=== PATIENT | female | born 1955 | race African-American/Black ===

== ENCOUNTER 2016-06-04 09:31 | Emergency (ER) | payer OTHER ==
[~2016-06-04] VITALS: Ht 160 cm; Wt 80.0 kg
[~2016-06-04 09:31] MED LIST: APIX5TAB PO; GABA100C4 PO; LEVEMIR SQ; METF500 PO
[2016-06-04 09:49] VITALS: BP 183/89; PULSE 83; RESP 18; TEMP 98.6; O2SAT 98
[2016-06-04] MEDS ORDERED: SODIUM CHLORIDE 0.9% FLUSH 5 ML FLUSH IVF PRN (10:00)
[2016-06-04] MEDS ORDERED: oxyCODONE/ACETAMINOPHEN 5 MG/325 MG TAB PO ONE (10:00)
[2016-06-04] MEDS ORDERED: METF1000 PO (10:11)
[2016-06-04] MEDS ORDERED: LEVEMIR SQ (10:11)
--- NOTE | 2016-06-04 10:11 | PD ---
HPI Chief Complaint: Chest Pain Time Seen by Provider: 09:59 Travel History International Travel<30 days: No Contact w/Intl Traveler<30days: No Traveled to known affect area: No History of Present Illness HPI This patient complains of chest pain. Location is left upper chest. It's a sharp stabbing pain that been constant for the last 11 hours. Severity is moderate. It's worse with pressing on it or moving her left shoulder. No injury. Denies fever or productive cough. She denies cardiac or pulmonary disease. She is diabetic. No alleviating factors PFSH Past Medical History Hx Anticoagulant Therapy: Yes Autoimmune Disease: No Blood Disorders: No Cancer: No Cardiovascular Problems: No High Cholesterol: Yes Chemotherapy: No Chest Pain: Yes Cerebrovascular Accident: No Diabetes: Yes (TYPE 2 ) Diminished Hearing: No Diverticulitis: Yes Deep Vein Thrombosis: Yes (LT THIGH) Endocrine: No Gastrointestinal Disorders: No Genitourinary: Yes Hepatitis: Yes ("THEY THINK I MIGHT HAVE IT BECAUSE MY LIVER IS ENLARGED") Hypertension: Yes Kidney Stones: Yes Musculoskeletal: Yes (CHRONIC RIGHT KNEE PAIN, BACK PAIN, TORN LIGAMENT R KNEE , CHRONIC WRIST INJ) Neurologic: No Psychiatric: No Respiratory: No Immunizations Current: Yes ?: Not Menopausal: Yes : 3 Para: 3 Miscarriage: 0 : 0 Tubal Ligation: Yes Past Surgical History Abdominal Surgery: Yes Appendectomy: Yes Cholecystectomy: Yes Gynecologic Surgery: Yes (BLADDER SLING) Hysterectomy: Yes Other Surgery: Yes Social History Alcohol Use: No Tobacco Use: No Substance Use: No Allergies-Medications (Allergen,Severity, Reaction): Coded Allergies: Contrast Media (Verified Allergy, Severe, Cardiac Arrest, 06/04/16) REACTION INFORMATION CAME FROM REPORT OF ABD/PELVIS SCAN DONE ON 05/27/2004 Shellfish (Verified Allergy, Severe, "stopped breathing,swelling", 06/04/16 ) Aleve (Verified Allergy, Unknown, PT DENIES, 06/04/16) Ibuprofen (Unverified Allergy, Unknown, PT DENIES, 06/04/16) Darvocet-N 100 (Verified Adverse Reaction, Severe, STOMACH PAIN, 06/04/16) Toradol (Verified Adverse Reaction, Severe, ITCHING, 06/04/16) Ultram (Verified Adverse Reaction, Severe, ITCHING, 06/04/16) Reported Meds & Prescriptions Reported Meds & Active Scripts Active Reported Metformin (Metformin HCl) 1,000 Mg Tab 1,000 Mg PO BIDPC With meals Levemir Inj (Insulin Detemir) 1,000 unit/ 10 ML Vial 60 Units SQ HS Do not mix with any other Insulin. Review of Systems General / Constitutional: No: Fever Eyes: No: Visual changes HENT: No: Headaches Cardiovascular: Positive: Chest Pain or Discomfort Respiratory: No: Shortness of Breath Gastrointestinal: No: Abdominal Pain Genitourinary: No: Dysuria Musculoskeletal: Positive: Pain Skin: No Rash Neurologic: No: Weakness Psychiatric: No: Depression Endocrine: No: Polydipsia Hematologic/Lymphatic: No: Easy Bruising Physical Exam Narrative GENERAL: Well-nourished, well-developed patient with left upper chest pain SKIN: Warm and dry. HEAD: Atraumatic. Normocephalic. EYES: Pupils equal and round. No scleral icterus. No injection or drainage. ENT: No nasal bleeding or discharge. Mucous membranes pink and moist. NECK: Trachea midline. No JVD. CARDIOVASCULAR: Regular rate and rhythm. No murmur appreciated. RESPIRATORY: No accessory muscle use. Clear to auscultation. Breath sounds equal bilaterally. GASTROINTESTINAL: Abdomen soft, non-tender, nondistended. Hepatic and splenic margins not palpable. MUSCULOSKELETAL: No obvious deformities. No clubbing. No cyanosis. No edema. Chest wall examination reveals readily reproducible tenderness in the left pectoral region. Right side is nontender NEUROLOGICAL: Awake and alert. No obvious cranial nerve deficits. Motor grossly within normal limits. Normal speech. PSYCHIATRIC: Appropriate mood and affect; insight and judgment normal. Data Data Last Documented VS Vital Signs Date Time Temp Pulse Resp B/P Pulse Ox O2 Delivery O2 Flow Rate FiO2 06/04/16 10:22 78 18 165/71 96 Room Air 06/04/16 09:49 98.6 Orders Basic Metabolic Panel (Bmp) (06/04/16 10:00) Ckmb (Isoenzyme) Profile (06/04/16 10:00) Complete Blood Count With Diff (06/04/16 10:00) Troponin I (06/04/16 10:00) Chest, Single Ap (06/04/16 10:00) Ecg Monitoring (06/04/16 10:00) Iv Access Insert/Monitor (06/04/16 10:00) Oximetry (06/04/16 10:00) Sodium Chloride 0.9% Flush (Ns Flush) (06/04/16 10:00) Oxycodone-Acetamin 5-325 Mg (Percocet (06/04/16 10:00) CKMB (06/04/16 09:57) CKMB% (06/04/16 09:57) Labs Laboratory Tests Test 06/04/16 09:57 White Blood Count 8.8 TH/MM3 Red Blood Count 4.26 MIL/MM3 Hemoglobin 13.0 GM/DL Hematocrit 39.1 % Mean Corpuscular Volume 91.7 FL Mean Corpuscular Hemoglobin 30.5 PG Mean Corpuscular Hemoglobin 33.3 % Concent Red Cell Distribution Width 12.9 % Platelet Count 331 TH/MM3 Mean Platelet Volume 8.5 FL Neutrophils (%) (Auto) 59.7 % Lymphocytes (%) (Auto) 33.2 % Monocytes (%) (Auto) 5.1 % Eosinophils (%) (Auto) 0.6 % Basophils (%) (Auto) 1.4 % Neutrophils # (Auto) 5.2 TH/MM3 Lymphocytes # (Auto) 2.9 TH/MM3 Monocytes # (Auto) 0.5 TH/MM3 Eosinophils # (Auto) 0.1 TH/MM3 Basophils # (Auto) 0.1 TH/MM3 CBC Comment DIFF FINAL Differential Comment Sodium Level 140 MEQ/L Potassium Level 3.9 MEQ/L Chloride Level 103 MEQ/L Carbon Dioxide Level 27.5 MEQ/L Anion Gap 10 MEQ/L Blood Urea Nitrogen 12 MG/DL Creatinine 0.70 MG/DL Estimat Glomerular Filtration 102 ML/MIN Rate Random Glucose 224 MG/DL Calcium Level 9.2 MG/DL Total Creatine Kinase 123 U/L Creatine Kinase MB LESS THAN 0.5 NG/ML Troponin I LESS THAN 0.02 NG/ML MDM Medical Decision Making Medical Screen Exam Complete: Yes Emergency Medical Condition: Yes Medical Record Reviewed: Yes Differential Diagnosis Differential diagnosis includes CT, angina, pericarditis, pleurisy, GERD, anxiety. Narrative Course I have reviewed the patient's electronic medical record. IV placed I reviewed the EKG which shows sinus rhythm but no ST elevation I reviewed the chest x-ray which is normal Extended cardiac monitoring shows sinus rhythm without ectopy CBC is normal Metabolic profile is normal CK is normal Troponin is normal Patient clinically stable for outpatient follow-up. She has noncardiac chest pain. Readily reproducible with palpation of the chest wall. She will discuss with her family physician which I have recommended she do Diagnosis Primary Impression: Chest pain in adult Additional Instructions: The patient was advised to follow up with their physician and return if they worsen. Med/Other Pt SpecificInfo: Other Disposition: 01 DISCHARGE HOME Condition: Stable Casey Sosa MD Jun 04, 2016 10:11
[2016-06-04 10:20] LABS: AUTOMATED NEUTROPHIL # 5.2 TH/MM3 (1.8-7.7); BASOPHIL # 0.1 TH/MM3 (0-0.2); BASOPHIL % 1.4 % (0.0-2.0); EOSINOPHIL # 0.1 TH/MM3 (0-0.4); EOSINOPHIL % 0.6 % (0.0-4.0); HEMATOCRIT 39.1 % (35.0-46.0); HEMO FLAGS DIFF FINAL; LYMPH % 33.2 % (9.0-44.0); LYMPHOCYTE # 2.9 TH/MM3 (1.0-4.8); MEAN CELL VOLUME 91.7 FL (80.0-100.0); MEAN CORPUSCULAR HEMOGLOBIN 30.5 PG (27.0-34.0); MEAN CORPUSCULAR HGB CONC 33.3 % (32.0-36.0); MONO % 5.1 % (0.0-8.0); NEUT % 59.7 % (16.0-70.0); PLATELET COUNT 331 TH/MM3 (150-450); RED BLOOD COUNT 4.26 MIL/MM3 (4.00-5.30); RED CELL DISTRIBUTION WIDTH 12.9 % (11.6-17.2); WHITE BLOOD COUNT 8.8 TH/MM3 (4.0-11.0)
[2016-06-04 10:22] VITALS: BP 165/71; PULSE 78; RESP 18; O2SAT 96
--- NOTE | 2016-06-04 10:23 | RADHPO ---
EXAM DATE/TIME: 06/04/2016 10:14 [facility] COMPARISON: No previous studies available for comparison. INDICATIONS : Chest pain. MEDICAL HISTORY : None. SURGICAL HISTORY : None. ENCOUNTER: Initial ACUITY: 2 days PAIN SCORE: 10/10 LOCATION: Left chest FINDINGS: A single view of the chest demonstrates the lungs to be symmetrically aerated without evidence of mas s, infiltrate or effusion. The cardiomediastinal contours are unremarkable. Osseous structures are intact. There are overlying electrocardiogram leads. CONCLUSION: No acute disease. Celso Dunn MD on June 04, 2016 at 10:21 Board Certified Radiologist. This report was verified electronically.
[2016-06-04 10:33] LABS: CHLORIDE 103 MEQ/L (98-107); SODIUM (NA) 140 MEQ/L (136-145)
[2016-06-04 10:36] LABS: ANION GAP 10 MEQ/L (5-15); BICARBONATE 27.5 MEQ/L (21.0-32.0)
[2016-06-04 10:37] LABS: BLOOD UREA NITROGEN 12 MG/DL (7-18)
[2016-06-04 10:40] LABS: GLOMERULAR FILTRATION RATE 102 ML/MIN (>89)
[2016-06-04 10:43] LABS: CREATINE KINASE 123 U/L (26-192)
[2016-06-04 11:00] LABS: POTASSIUM 3.9 MEQ/L (3.5-5.1)
[2016-06-04 11:13] LABS: CKMB LESS THAN 0.5 NG/ML (0.5-3.6)
[2016-06-04 11:31] VITALS: RESP 18
[2016-06-04 11:46] VITALS: BP 173/88
--- NOTE | 2016-06-05 16:27 | EKG ---
Date Performed: 06/04/2016 Time Performed: 09:35:12 PTAGE: 61 years EKG: Sinus rhythm Leftward axis Left ventricular hypertrophy by voltage only When compared to previous tracing, QRS vo ltage slightly greater In AVL, this is a soft finding, otherwise no significant change. Abnormal ECG PREVIOUS TRACING : 11/20/2014 11.30 DOCTOR: Duong Pike Interpretating Date/Time 06/05/2016 16:26:20
== END 2016-06-04 11:47 | disposition home or self-care (01) ==
LOC: PHED 09:31
DX: R07.9 Chest pain, unspecified (principal); I10 Essential (primary) hypertension; E11.9 Type 2 diabetes mellitus without complications; Z79.4 Long term (current) use of insulin; Z79.84 Long term (current) use of oral hypoglycemic drugs
CPT/HCPCS: 71010; 80048; 82550; 82552; 84484; 85025; 93005; 99285

== ENCOUNTER 2016-08-20 09:58 | Emergency (ER) | payer OTHER ==
[~2016-08-20] VITALS: Ht 160 cm; Wt 79.8 kg
[~2016-08-20 09:58] MED LIST changes: -APIX5TAB PO; -GABA100C4 PO; +METF1000 PO; -METF500 PO
[2016-08-20 10:04] VITALS: BP 144/86; PULSE 93; RESP 16; TEMP 98.5; O2SAT 98
[2016-08-20] MEDS ORDERED: oxyCODONE/ACETAMINOPHEN 5 MG/325 MG TAB PO ONE (10:30)
--- NOTE | 2016-08-20 10:32 | PD ---
HPI Chief Complaint: Fall Time Seen by Provider: 10:15 Travel History International Travel<30 days: No Contact w/Intl Traveler<30days: No Traveled to known affect area: No History of Present Illness HPI Patient is a 61 year old female who presents to ER with c/o of right hip and knee pain after fall on Tuesday. Patient reports that she was trying to get into her truck and reports that she lost her balance and fell landing on her right knee and right hip. Patient denies any trauma to her head/neck. Denies loc. Reports that her had to help her get up from the ground after her fall. Patient reports that she has been ambulating with pain to her right hip and knee. Denies abdominal pain. Denies n/v/d. No other c/o. PFSH Past Medical History Hx Anticoagulant Therapy: Yes Autoimmune Disease: No Blood Disorders: No Cancer: No Cardiovascular Problems: No High Cholesterol: Yes Chemotherapy: No Chest Pain: Yes Cerebrovascular Accident: No Diabetes: Yes (TYPE 2 ) Patient Takes Glucophage: Yes Diminished Hearing: No Diverticulitis: Yes Deep Vein Thrombosis: Yes (LT THIGH) Endocrine: No Gastrointestinal Disorders: No Genitourinary: Yes Hepatitis: Yes ("THEY THINK I MIGHT HAVE IT BECAUSE MY LIVER IS ENLARGED") Hypertension: Yes Kidney Stones: Yes Musculoskeletal: Yes (CHRONIC RIGHT KNEE PAIN, BACK PAIN, TORN LIGAMENT R KNEE , CHRONIC WRIST INJ) Neurologic: No Psychiatric: No Respiratory: No Immunizations Current: Yes ?: Not Menopausal: Yes : 3 Para: 3 Miscarriage: 0 : 0 Tubal Ligation: Yes Past Surgical History Abdominal Surgery: Yes Appendectomy: Yes Cholecystectomy: Yes Gynecologic Surgery: Yes (BLADDER SLING) Hysterectomy: Yes Other Surgery: Yes Social History Alcohol Use: No Tobacco Use: No (NEVER) Substance Use: No Allergies-Medications (Allergen,Severity, Reaction): Coded Allergies: Contrast Media (Verified Allergy, Severe, Cardiac Arrest, 08/20/16) REACTION INFORMATION CAME FROM REPORT OF ABD/PELVIS SCAN DONE ON 05/27/2004 Shellfish (Verified Allergy, Severe, "stopped breathing,swelling", 08/20/16) Aleve (Verified Allergy, Unknown, PT DENIES, 08/20/16) Ibuprofen (Unverified Allergy, Unknown, PT DENIES, 08/20/16) Darvocet-N 100 (Verified Adverse Reaction, Severe, STOMACH PAIN, 08/20/16) Toradol (Verified Adverse Reaction, Severe, ITCHING, 08/20/16) Ultram (Verified Adverse Reaction, Severe, ITCHING, 08/20/16) Reported Meds & Prescriptions Reported Meds & Active Scripts Active Percocet (Oxycodone-Acetaminophen) 5-325 mg Tab 1 Tab PO Q6H PRN Reported Metformin (Metformin HCl) 1,000 Mg Tab 1,000 Mg PO BIDPC With meals Levemir Inj (Insulin Detemir) 1,000 unit/ 10 ML Vial 60 Units SQ HS Do not mix with any other Insulin. Review of Systems General / Constitutional: No: Fever Eyes: No: Visual changes HENT: No: Headaches Cardiovascular: No: Chest Pain or Discomfort Respiratory: No: Shortness of Breath Gastrointestinal: No: Abdominal Pain Genitourinary: No: Dysuria Musculoskeletal: Positive: Limited ROM (right hip and right knee), Pain (right hip and right knee) Skin: No Rash Neurologic: No: Weakness Psychiatric: No: Depression Endocrine: No: Polydipsia Hematologic/Lymphatic: No: Easy Bruising Physical Exam Narrative GENERAL: mild distress SKIN: Focused skin assessment warm/dry. HEAD: Atraumatic. Normocephalic. EYES: Pupils equal and round. No scleral icterus. No injection or drainage. ENT: No nasal bleeding or discharge. Mucous membranes pink and moist. NECK: Trachea midline. No JVD. CARDIOVASCULAR: Regular rate and rhythm. No murmur appreciated. RESPIRATORY: No accessory muscle use. Clear to auscultation. Breath sounds equal bilaterally. GASTROINTESTINAL: Abdomen soft, non-tender, nondistended. Hepatic and splenic margins not palpable. MUSCULOSKELETAL: No obvious deformities. No clubbing. No cyanosis. No edema. NEUROLOGICAL: Awake and alert. No obvious cranial nerve deficits. Motor grossly within normal limits. Normal speech. Patient with pain with ROM to right hip and right knee, no obvious fx/open fx, no bruising on exam PSYCHIATRIC: Appropriate mood and affect; insight and judgment normal. Data Data Last Documented VS Vital Signs Date Time Temp Pulse Resp B/P Pulse Ox O2 Delivery O2 Flow Rate FiO2 08/20/16 10:04 98.5 93 16 144/86 98 Orders Hip, Uni(Ap&Lat) W Ap Pelvis (08/20/16 ) Knee, Complete (4vws) (08/20/16 ) Oxycodone-Acetamin 5-325 Mg (Percocet (08/20/16 10:30) MDM Medical Decision Making Medical Screen Exam Complete: Yes Emergency Medical Condition: Yes Interpretation(s) Vital Signs Date Time Temp Pulse Resp B/P Pulse Ox O2 Delivery O2 Flow Rate FiO2 08/20/16 10:04 98.5 93 16 144/86 98 Differential Diagnosis Hip strain, hip fracture, knee sprain, knee fracture Narrative Course 61-year-old female who presents to emergency room with complaints of right hip as well as right knee pain since Tuesday after she fell from a truck onto the floor. Patient with no loss of consciousness after fall, patient reports that she has had pain with ambulation to her right hip and right knee. Patient has been ambulating in ER without assist. Xray of hip and knee ordered. Patient requesting pain medications, reports that she has tolerated Percocet without any adverse reactions in the past X-ray of right hip: Degenerative changes in the hips bilaterally X-ray of right knee: Arthritic changes, no acute bony injury Patient ambulating emergency with normal gait. Xrays were reviewed with patient in detail. Patient will follow up with her orthopedic surgeon and will return to ER as needed. Diagnosis Primary Impression: Arthritis of knee, right Additional Impression: Arthritis of right hip Patient Instructions: General Instructions, Narcotic given in the ED Additional Instructions: Please follow-up with your orthopedic surgeon Return to the emergency room as needed Please do not drive or operate heavy machinery while taking narcotic pain medications Med/Other Pt SpecificInfo: Prescription(s) given Scripts Oxycodone-Acetaminophen (Percocet)5-325 mg Tab1 Tab PO Q6H PRN (PAIN) #10 TAB Ref 0 Prov:Anali Gonzalez DO 08/20/16 Disposition: 01 DISCHARGE HOME Condition: Stable Anali Gonzalez DO August 20, 2016 10:32
--- NOTE | 2016-08-20 10:43 | RADHPO ---
EXAM DATE/TIME: 08/20/2016 10:25 [facility] COMPARISON: KNEE RIGHT COMPLETE (4VWS), August 20, 2016, 10:22. INDICATIONS : Fell, complains of right hip pain. MEDICAL HISTORY : None. SURGICAL HISTORY : None. ENCOUNTER: Initial ACUITY: 3 days PAIN SCORE: 9/10 LOCATION: Right Hip FINDINGS: The femoral heads are well situated within the acetabular fossa. There are mild arthritic changes ruddy aterally. The hip itself appears intact. The remainder of the bony pelvis is intact. There degenerative changes in lower lumbar spine. CONCLUSION: 1. Degenerative changes in the hips bilaterally. Rajiv Wynn MD on August 20, 2016 at 10:39 Board Certified Radiologist. This report was verified electronically.
--- NOTE | 2016-08-20 10:46 | RADHPO ---
EXAM DATE/TIME: 08/20/2016 10:22 [facility] COMPARISON: No previous studies available for comparison. INDICATIONS : Fell, complains of right knee pain. MEDICAL HISTORY : None. SURGICAL HISTORY : Right knee arthroscopy ENCOUNTER: Initial ACUITY: 3 days PAIN SCORE: 9/10 LOCATION: Right Knee FINDINGS: There is no evidence of fracture or joint effusion. Fairly severe arthritic changes are present with medial compartment joint space loss. Tricompartmental osteophyte formation is present. CONCLUSION: Arthritic changes. No acute bony injury Kb Thomas MD on August 20, 2016 at 10:39 Board Certified Radiologist. This report was verified electronically.
[2016-08-20] MEDS ORDERED: PERC5TAB12 PO (11:06)
== END 2016-08-20 11:20 | disposition home or self-care (01) ==
LOC: PHED 09:58
DX: M17.11 Unilateral primary osteoarthritis, right knee (principal); M16.11 Unilateral primary osteoarthritis, right hip; E78.00 Pure hypercholesterolemia, unspecified; E11.9 Type 2 diabetes mellitus without complications; I10 Essential (primary) hypertension; Z86.718 Personal history of other venous thrombosis and embolism; Z79.01 Long term (current) use of anticoagulants
CPT/HCPCS: 73502; 73564; 99283

== ENCOUNTER 2017-03-09 17:12 | Emergency (ER) | payer OTHER ==
[~2017-03-09] VITALS: Ht 160 cm; Wt 78.0 kg
[~2017-03-09 17:12] MED LIST changes: +PERC5TAB12 PO
[2017-03-09 17:17] VITALS: BP 178/92; PULSE 93; RESP 18; TEMP 98.9; O2SAT 96
[2017-03-09] MEDS ORDERED: GABA300C5 PO (17:27)
--- NOTE | 2017-03-09 18:28 | PD ---
HPI Chief Complaint: Edema Time Seen by Provider: 17:31 Travel History International Travel<30 days: No Contact w/Intl Traveler<30days: No Traveled to known affect area: No History of Present Illness HPI 62yo F with PMH of right knee replacement by Dr. Gallegos 2 months ago presents to the ED with c/o right leg pain since her surgery 2 months ago. Said she also has swelling for 2 months. Pain is sharp, and shoots down from right hip down right leg. Pt said she followed up with Dr. Gallegos last week and he said that he may need to go back in because of scar tissue. Pt denies any fever, focal weakness or numbness, chest pain, sob, n/v, abdominal pain. Said she was on percocet 10 and it relieved her pain but she ran out of pain medication 4 days ago. Denies any new trauma. Said she had blood clot in her left leg a year ago but they didnt treat it. PFSH Past Medical History Hx Anticoagulant Therapy: Yes Autoimmune Disease: No Blood Disorders: No Cancer: No Cardiovascular Problems: No High Cholesterol: Yes Chemotherapy: No Chest Pain: Yes Cerebrovascular Accident: No Diabetes: Yes Patient Takes Glucophage: No Diminished Hearing: No Diverticulitis: Yes Deep Vein Thrombosis: Yes (LT THIGH) Endocrine: No Gastrointestinal Disorders: No Genitourinary: Yes Hepatitis: Yes ("THEY THINK I MIGHT HAVE IT BECAUSE MY LIVER IS ENLARGED") Hypertension: Yes Kidney Stones: Yes Musculoskeletal: Yes (CHRONIC RIGHT KNEE PAIN, BACK PAIN, TORN LIGAMENT R KNEE , CHRONIC WRIST INJ) Neurologic: No Psychiatric: No Reproductive: No Respiratory: No Immunizations Current: Yes ?: Not Menopausal: Yes : 3 Para: 3 Miscarriage: 0 : 0 Tubal Ligation: Yes Past Surgical History Abdominal Surgery: Yes Appendectomy: Yes Cholecystectomy: Yes Gynecologic Surgery: Yes (BLADDER SLING) Hysterectomy: Yes Other Surgery: Yes Social History Alcohol Use: No Tobacco Use: No (NEVER) Substance Use: No Allergies-Medications (Allergen,Severity, Reaction): Coded Allergies: diatrizoate meglumine (Verified Allergy, Severe, Cardiac Arrest, 02/13/17) REACTION INFORMATION CAME FROM REPORT OF ABD/PELVIS SCAN DONE ON 05/27/2004 gadobenic acid (Verified Allergy, Severe, Cardiac Arrest, 02/13/17) REACTION INFORMATION CAME FROM REPORT OF ABD/PELVIS SCAN DONE ON 05/27/2004 gadodiamide (Verified Allergy, Severe, Cardiac Arrest, 02/13/17) REACTION INFORMATION CAME FROM REPORT OF ABD/PELVIS SCAN DONE ON 05/27/2004 gadoteridol (Verified Allergy, Severe, Cardiac Arrest, 02/13/17) REACTION INFORMATION CAME FROM REPORT OF ABD/PELVIS SCAN DONE ON 05/27/2004 iodixanol (Verified Allergy, Severe, Cardiac Arrest, 02/13/17) REACTION INFORMATION CAME FROM REPORT OF ABD/PELVIS SCAN DONE ON 05/27/2004 iohexol (Verified Allergy, Severe, Cardiac Arrest, 02/13/17) REACTION INFORMATION CAME FROM REPORT OF ABD/PELVIS SCAN DONE ON 05/27/2004 shellfish derived (Verified Allergy, Severe, "stopped breathing,swelling" , 02/13/17) acetaminophen (Verified Adverse Reaction, Severe, STOMACH PAIN, 02/13/17) ketorolac (Verified Adverse Reaction, Severe, ITCHING, 02/13/17) propoxyphene (Verified Adverse Reaction, Severe, STOMACH PAIN, 02/13/17) tramadol (Verified Adverse Reaction, Severe, ITCHING, 02/13/17) Reported Meds & Prescriptions Reported Meds & Active Scripts Active Reported Gabapentin 300 Mg Cap 300 Mg PO TID Metformin (Metformin HCl) 1,000 Mg Tab 1,000 Mg PO BIDPC With meals Levemir Inj (Insulin Detemir) 1,000 unit/ 10 ML Vial 60 Units SQ HS Do not mix with any other Insulin. Review of Systems Except as stated in HPI: all other systems reviewed are Neg Physical Exam Narrative GENERAL: 62yo F in mild distress. SKIN: Focused skin assessment warm/dry. HEAD: Atraumatic. Normocephalic. EYES: Pupils equal and round. No scleral icterus. No injection or drainage. CARDIOVASCULAR: Regular rate and rhythm. No murmur appreciated. RESPIRATORY: No accessory muscle use. Clear to auscultation. Breath sounds equal bilaterally. GASTROINTESTINAL: Abdomen soft, non-tender, nondistended. MUSCULOSKELETAL: RLE: +TTP right hip. +warmth and edema in right knee, ttp. No erythema on right knee. Able to flex and extend knee but with pain. Able to flex and extend right hip but with pain. Sensation equal bilaterally. Distal pulses intact. Soft compartments. No crepitus palpated. NEUROLOGICAL: Awake and alert. No obvious cranial nerve deficits. Motor grossly within normal limits. Normal speech. PSYCHIATRIC: Appropriate mood and affect; insight and judgment normal. Data Data Last Documented VS Vital Signs Date Time Temp Pulse Resp B/P (MAP) Pulse Ox O2 Delivery O2 Flow Rate FiO2 03/09/17 19:44 92 18 180/98 (125) 97 03/09/17 19:00 Room Air 03/09/17 17:17 98.9 Orders Orders Us Leg Venous Doppler Bilat (03/09/17 ) Hip, Uni(Ap&Lat) W Ap Pelvis (03/09/17 ) Knee, Ltd (1 Or 2vws) (03/09/17 ) Complete Blood Count With Diff (03/09/17 17:41) Basic Metabolic Panel (Bmp) (03/09/17 17:41) Lactic Acid Sepsis Protocol (03/09/17 17:41) Prothrombin Time / Inr (Pt) (03/09/17 17:41) Act Partial Throm Time (Ptt) (03/09/17 17:41) Oxycodone-Acetamin 10-325 Mg (Percocet 1 (03/09/17 18:30) Potassium Chloride (Kcl) (03/09/17 19:00) Ed Discharge Order (03/09/17 19:25) Labs Laboratory Tests Test 03/09/17 18:25 White Blood Count 8.4 TH/MM3 Red Blood Count 4.44 MIL/MM3 Hemoglobin 13.1 GM/DL Hematocrit 39.5 % Mean Corpuscular Volume 89.1 FL Mean Corpuscular Hemoglobin 29.5 PG Mean Corpuscular Hemoglobin Concent 33.1 % Red Cell Distribution Width 13.3 % Platelet Count 314 TH/MM3 Mean Platelet Volume 8.4 FL Neutrophils (%) (Auto) 65.7 % Lymphocytes (%) (Auto) 29.1 % Monocytes (%) (Auto) 4.4 % Eosinophils (%) (Auto) 0.3 % Basophils (%) (Auto) 0.5 % Neutrophils # (Auto) 5.5 TH/MM3 Lymphocytes # (Auto) 2.5 TH/MM3 Monocytes # (Auto) 0.4 TH/MM3 Eosinophils # (Auto) 0.0 TH/MM3 Basophils # (Auto) 0.0 TH/MM3 CBC Comment DIFF FINAL Differential Comment Prothrombin Time 12.4 SEC Prothromb Time International Ratio 1.1 RATIO Activated Partial Thromboplast Time 27.9 SEC Blood Urea Nitrogen 8 MG/DL Creatinine 0.57 MG/DL Random Glucose 142 MG/DL Calcium Level 9.4 MG/DL Sodium Level 140 MEQ/L Potassium Level 3.1 MEQ/L Chloride Level 104 MEQ/L Carbon Dioxide Level 28.2 MEQ/L Anion Gap 8 MEQ/L Estimat Glomerular Filtration Rate 129 ML/MIN Lactic Acid Level 1.1 mmol/L MDM Medical Decision Making Medical Screen Exam Complete: Yes Emergency Medical Condition: Yes Differential Diagnosis Gout vs. rheumatoid arthritis vs. DVT vs. sciatica vs. fracture vs. osteoarthritis vs. septic joint (low suspicion) Narrative Course 62yo F here for right leg pain after running out of percocet 4 days ago. Said pain has been there for 2 months since her knee replacement 2 months ago. Right knee is edematous and warm to touch but no fever and pain has been there for 2 months so low suspicion for septic joint. However, will do labs including lactic acid. Will also give percocet 10. Pt has acetaminophen listed as allergies but said percocet is fine. Will obtain xray right hip and knee since she has point tenderness as well as b/l US lower extremity to r/o DVT since her history of left blood clot without treatment is questionable. Labs reviewed, no leukocytosis. Lactic acid is normal at 1.1. KCl 3.1, replaced orally. US B/L extremity showed no DVT. Pt given percocet with improvement of pain. Improved range of motion in right leg. Xray right hip negative. Xray right knee showed intact total knee arthroplasty. Possible small knee effusion. I recommended arthrocentesis of right knee to 100% rule out septic arthritis and to differentiate between gout and other pathology, but pt is refusing the procedure. Understands that I cannot 100% r/o septic joint without it. Pt said her knee is always warm to touch and has been warm for 2 months and does not want arthrocentesis. Pt has pain management and needs to follow up with them. Understands I wont give narcotic prescription since she has pain management. Pt is to follow up with her orthopedic surgeon as soon as she can. Return precautions given. Diagnosis Primary Impression: Right leg pain Patient Instructions: General Instructions Departure Forms: Tests/Procedures Additional Instructions: Please follow up with your orthopedic surgeon as soon as you can. Return to the ED if symptoms worsen. Med/Other Pt SpecificInfo: No Change to Meds Disposition: 01 DISCHARGE HOME Condition: Stable Annabella Patel DO Mar 09, 2017 18:28
[2017-03-09] MEDS ORDERED: oxyCODONE/ACETAMINOPHEN 10 MG/325 MG TAB PO ONE (18:30)
[2017-03-09 18:34] VITALS: BP 174/97; PULSE 97; O2SAT 97
[2017-03-09 18:34] LABS: AUTOMATED NEUTROPHIL # 5.5 TH/MM3 (1.8-7.7); BASOPHIL % 0.5 % (0.0-2.0); EOSINOPHIL % 0.3 % (0.0-4.0); HEMATOCRIT 39.5 % (35.0-46.0); HEMO FLAGS DIFF FINAL; LYMPH % 29.1 % (9.0-44.0); LYMPHOCYTE # 2.5 TH/MM3 (1.0-4.8); MEAN CELL VOLUME 89.1 FL (80.0-100.0); MEAN CORPUSCULAR HEMOGLOBIN 29.5 PG (27.0-34.0); MEAN CORPUSCULAR HGB CONC 33.1 % (32.0-36.0); MONO % 4.4 % (0.0-8.0); NEUT % 65.7 % (16.0-70.0); PLATELET COUNT 314 TH/MM3 (150-450); RED BLOOD COUNT 4.44 MIL/MM3 (4.00-5.30); RED CELL DISTRIBUTION WIDTH 13.3 % (11.6-17.2); WHITE BLOOD COUNT 8.4 TH/MM3 (4.0-11.0)
--- NOTE | 2017-03-09 18:36 | RADRPT ---
EXAM DATE/TIME: 03/09/2017 17:55 [facility] COMPARISON: No previous studies available for comparison. INDICATIONS : Bilateral leg pain. MEDICAL HISTORY : Hypercholesterolemia. Hypertension. Deep vein thrombosis. Kidney stones. Diabetes. SURGICAL HISTORY : Appendectomy.Cholecystectomy. Tubal ligation.Hysterectomy. ENCOUNTER: Initial ACUITY: 4 - 6 months PAIN SCORE: 3/10 LOCATION: Bilateral legs. TECHNIQUE: Venous ultrasound of the left and right leg was performed from the inguinal ligament to the proximal calf. Real-time, color Doppler and spectral tracing, compression and augmentation techniques were us ed. FINDINGS: RIGHT LEG: There is normal compressibility of the deep venous system from the inguinal region to the proximal ca lf. No echogenic clot is seen in the lumen of the common femoral, femoral, popliteal, and posterior tibial veins. There is a normal response of the venous system to proximal and distal augmentation an d respiration. LEFT LEG: There is normal compressibility of the deep venous system from the inguinal region to the proximal ca lf. No echogenic clot is seen in the lumen of the common femoral, femoral, popliteal, and posterior tibial veins. There is a normal response of the venous system to proximal and distal augmentation an d respiration. CONCLUSION: The study is negative for deep venous thrombosis bilateral lower extremity. Onur Briceno MD on March 09, 2017 at 18:34 Board Certified Radiologist. This report was verified electronically.
[2017-03-09 18:42] LABS: POTASSIUM 3.1 MEQ/L (3.5-5.1)
[2017-03-09 18:45] LABS: BICARBONATE 28.2 MEQ/L (21.0-32.0)
[2017-03-09] MEDS ORDERED: POTASSIUM CHLORIDE 20 MEQ CONTROLLED RELEASE TAB PO ONE (19:00)
[2017-03-09 19:07] LABS: APTT (PATIENT) 27.9 SEC (24.3-30.1); INTERNATIONAL NORMALIZED RATIO 1.1 RATIO; PROTHROMBIN TIME - PATIENT 12.4 SEC (9.8-11.6)
--- NOTE | 2017-03-09 19:08 | RADRPT ---
EXAM DATE/TIME: 03/09/2017 18:45 [facility] COMPARISON: HIP RIGHT (AP&LAT 2/3VWS) W AP PELVIS, August 20, 2016, 10:25. INDICATIONS : Right hip pain for 1 week with no known injury MEDICAL HISTORY : None. SURGICAL HISTORY : None. ENCOUNTER: Initial ACUITY: 1 week PAIN SCORE: 5/10 LOCATION: Right entire hip FINDINGS: Examination of the right hip was performed with AP Pelvis. The primary and secondary trabecular jane luis of the femoral neck is intact. The hip joint is of normal width without significant sclerosis or bony hypertrophy. The acetabulum is grossly intact. Mild osteopenia. The overall appearance the p elvic cyst and right hip is unchanged from prior examination in August 2016. CONCLUSION: No acute findings. Onur Briceno MD on March 09, 2017 at 19:05 Board Certified Radiologist. This report was verified electronically.
--- NOTE | 2017-03-09 19:09 | RADRPT ---
EXAM DATE/TIME: 03/09/2017 18:45 [facility] COMPARISON: No previous studies available for comparison. INDICATIONS : Right knee pain post right total knee replacement 2 months ago MEDICAL HISTORY : None. SURGICAL HISTORY : Total knee replacement, right. ENCOUNTER: Initial ACUITY: 2 months PAIN SCORE: 8/10 LOCATION: Right entire knee FINDINGS: Total knee arthroplasty with non-cemented tibial and femoral components. Alignment of the osseous st ructures is near anatomic. No lucency is seen at the bone/metal interface. Mild soft tissue density in the suprapatellar region without evidence of distention. A small knee effusion cannot be exclude d. CONCLUSION: Intact total knee arthroplasty. Possible small knee effusion. Onur Briceno MD on March 09, 2017 at 19:06 Board Certified Radiologist. This report was verified electronically.
[2017-03-09 19:24] VITALS: RESP 16
[2017-03-09 19:44] VITALS: BP 180/98
== END 2017-03-09 19:50 | disposition home or self-care (01) ==
LOC: PHED 17:12
DX: M79.604 Pain in right leg (principal); I10 Essential (primary) hypertension; E78.00 Pure hypercholesterolemia, unspecified; E11.9 Type 2 diabetes mellitus without complications; Z86.718 Personal history of other venous thrombosis and embolism; Z96.651 Presence of right artificial knee joint; Z79.84 Long term (current) use of oral hypoglycemic drugs; Z79.899 Other long term (current) drug therapy
CPT/HCPCS: 73502; 73560; 80048; 83605; 85025; 85610; 85730; 93970

== ENCOUNTER 2017-05-04 20:15 | Emergency (ER) | payer OTHER ==
[~2017-05-04] VITALS: Ht 160 cm; Wt 80.0 kg
[~2017-05-04 20:15] MED LIST changes: +GABA300C5 PO; -PERC5TAB12 PO
[2017-05-04 20:41] VITALS: BP 150/84; PULSE 87; RESP 18; TEMP 98.6; O2SAT 98
[2017-05-04] MEDS ORDERED: PERC10TA27 PO (21:25)
[2017-05-04] MEDS ORDERED: ROBA750T PO (21:57)
--- NOTE | 2017-05-04 21:58 | PD ---
HPI Chief Complaint: Musculoskeletal Complaint Time Seen by Provider: 21:47 Travel History International Travel<30 days: No Contact w/Intl Traveler<30days: No Traveled to known affect area: No History of Present Illness HPI 62-year-old female complaining of pain swelling in the right knee. Patient status post right knee surgery for soft tissue injury to the right knee 3 months ago. Patient had been seen by orthopedist Dr. Paz in [place]. Patient denies any new injury. Patient denies any fever chills. Patient states the pain is sharp pain localized to the right knee. Patient denies any pain radiation. On a scale of 1-10 the pain as an 8. Patient states that she has been taking oxycodone at home for pain. PFSH Past Medical History Hx Anticoagulant Therapy: Yes Autoimmune Disease: No Blood Disorders: No Cancer: No Cardiovascular Problems: No High Cholesterol: Yes Chemotherapy: No Chest Pain: Yes Cerebrovascular Accident: No Diabetes: Yes Patient Takes Glucophage: Yes Diminished Hearing: No Diverticulitis: Yes Deep Vein Thrombosis: Yes (LT THIGH) Endocrine: No Gastrointestinal Disorders: No Genitourinary: Yes Hepatitis: Yes ("THEY THINK I MIGHT HAVE IT BECAUSE MY LIVER IS ENLARGED") Hypertension: Yes Kidney Stones: Yes Musculoskeletal: Yes (CHRONIC RIGHT KNEE PAIN, BACK PAIN, TORN LIGAMENT R KNEE , CHRONIC WRIST INJ) Neurologic: No Psychiatric: No Reproductive: No Respiratory: No Immunizations Current: Yes Tetanus Vaccination: < 5 Years Influenza Vaccination: Yes Menopausal: Yes : 3 Para: 3 Miscarriage: 0 : 0 Tubal Ligation: Yes Past Surgical History Abdominal Surgery: Yes Appendectomy: Yes Cholecystectomy: Yes Gynecologic Surgery: Yes (BLADDER SLING) Hysterectomy: Yes Other Surgery: Yes Social History Alcohol Use: No Tobacco Use: No (NEVER) Substance Use: No Allergies-Medications (Allergen,Severity, Reaction): Coded Allergies: diatrizoate meglumine (Verified Allergy, Severe, Cardiac Arrest, 05/04/17) REACTION INFORMATION CAME FROM REPORT OF ABD/PELVIS SCAN DONE ON 05/27/2004 gadobenic acid (Verified Allergy, Severe, Cardiac Arrest, 05/04/17) REACTION INFORMATION CAME FROM REPORT OF ABD/PELVIS SCAN DONE ON 05/27/2004 gadodiamide (Verified Allergy, Severe, Cardiac Arrest, 05/04/17) REACTION INFORMATION CAME FROM REPORT OF ABD/PELVIS SCAN DONE ON 05/27/2004 gadoteridol (Verified Allergy, Severe, Cardiac Arrest, 05/04/17) REACTION INFORMATION CAME FROM REPORT OF ABD/PELVIS SCAN DONE ON 05/27/2004 iodixanol (Verified Allergy, Severe, Cardiac Arrest, 05/04/17) REACTION INFORMATION CAME FROM REPORT OF ABD/PELVIS SCAN DONE ON 05/27/2004 iohexol (Verified Allergy, Severe, Cardiac Arrest, 05/04/17) REACTION INFORMATION CAME FROM REPORT OF ABD/PELVIS SCAN DONE ON 05/27/2004 shellfish derived (Verified Allergy, Severe, "stopped breathing,swelling" , 05/04/17) acetaminophen (Verified Adverse Reaction, Severe, STOMACH PAIN, 05/04/17) ketorolac (Verified Adverse Reaction, Severe, ITCHING, 05/04/17) propoxyphene (Verified Adverse Reaction, Severe, STOMACH PAIN, 05/04/17) tramadol (Verified Adverse Reaction, Severe, ITCHING, 05/04/17) Reported Meds & Prescriptions Reported Meds & Active Scripts Active Reported Percocet (Oxycodone-Acetaminophen) 10-325 mg Tab 1 Tab PO Q6H PRN Gabapentin 300 Mg Cap 300 Mg PO TID Metformin (Metformin HCl) 1,000 Mg Tab 1,000 Mg PO BIDPC With meals Levemir Inj (Insulin Detemir) 1,000 unit/ 10 ML Vial 60 Units SQ HS Do not mix with any other Insulin. Review of Systems General / Constitutional: No: Fever Eyes: No: Visual changes HENT: No: Headaches Cardiovascular: No: Chest Pain or Discomfort Respiratory: No: Shortness of Breath Gastrointestinal: No: Abdominal Pain Genitourinary: No: Dysuria Musculoskeletal: Positive: Edema, Pain Skin: No Rash Neurologic: No: Weakness Psychiatric: No: Depression Endocrine: No: Polydipsia Hematologic/Lymphatic: No: Easy Bruising Physical Exam Narrative GENERAL: Well-nourished, well-developed patient. SKIN: Focused skin assessment warm/dry. HEAD: Normocephalic. EYES: No scleral icterus. No injection or drainage. NECK: Supple, trachea midline. No JVD or lymphadenopathy. CARDIOVASCULAR: Regular rate and rhythm without murmurs, gallops, or rubs. RESPIRATORY: Breath sounds equal bilaterally. No accessory muscle use. GASTROINTESTINAL: Abdomen soft, non-tender, nondistended. MUSCULOSKELETAL: No cyanosis, or edema. BACK: Nontender without obvious deformity. No CVA tenderness. Patient had swelling around the right knee joint with mild effusion noted. Limited range of motion of the right knee secondary to pain. No redness or heat noted. Sensorimotor function distally intact. Data Data Last Documented VS Vital Signs Date Time Temp Pulse Resp B/P (MAP) Pulse Ox O2 Delivery O2 Flow Rate FiO2 05/04/17 20:41 98.6 87 18 150/84 (106) 98 Orders Orders Ed Discharge Order (05/04/17 21:52) MDM Medical Decision Making Medical Screen Exam Complete: Yes Emergency Medical Condition: Yes Differential Diagnosis Differential diagnosis including acute exacerbation of chronic pain. Narrative Course 62-year-old female with persistent pain in swelling in the right knee. Status post right knee surgery 3 months ago. Patient's on oxycodone at home for pain. No new injury. Diagnosis Primary Impression: Arthralgia of right knee Patient Instructions: General Instructions Additional Instructions: Advice patient to take Robaxin as needed for pain. Follow-up with orthopedist. Patient has oxycodone at home. Med/Other Pt SpecificInfo: Prescription(s) given Scripts Methocarbamol (Robaxin) 750 Mg Tab 750 MG PO QID for Muscle Spasm, #40 TAB 0 Refills Prov: Deng Hoffman MD 05/04/17 Disposition: 01 DISCHARGE HOME Condition: Stable Deng Hoffman MD May 04, 2017 21:57
== END 2017-05-04 22:10 | disposition home or self-care (01) ==
LOC: PHED 20:15 → PHEFT 22:10
DX: M25.561 Pain in right knee (principal); R22.41 Localized swelling, mass and lump, right lower limb; E11.9 Type 2 diabetes mellitus without complications; I10 Essential (primary) hypertension; E78.00 Pure hypercholesterolemia, unspecified; Z98.890 Other specified postprocedural states; Z79.01 Long term (current) use of anticoagulants; Z79.84 Long term (current) use of oral hypoglycemic drugs; Z86.718 Personal history of other venous thrombosis and embolism; Z87.39 Personal history of other diseases of the musculoskeletal system and connective tissue; Z87.448 Personal history of other diseases of urinary system
CPT/HCPCS: 99283